=== PATIENT | male | born 1995 | race Caucasian/White ===

== ENCOUNTER 2018-09-22 21:37 | Emergency (ER) | payer MEDICAID, OTHER ==
[~2018-09-22] VITALS: Ht 190.5 cm; Wt 90.0 kg
[~2018-09-22 21:37] MED LIST: HYDR-4353 PO
[2018-09-22 21:45] VITALS: BP 129/84
[2018-09-22] MEDS ORDERED: NAPR-56 PO (22:10)
[2018-09-22] MEDS ORDERED: SULF1TAB49 PO (22:10)
[2018-09-24] MEDS ORDERED: ABX (11:30)
[2018-09-26] MEDS ORDERED: LINE600T36 PO (10:40)
[2018-09-26] MEDS ORDERED: LACT1CAP26 PO (10:40)
== END 2018-09-22 22:40 | disposition home or self-care (01) ==
LOC: ER 21:37
DX: L03.113 Cellulitis of right upper limb (principal); F12.90 Cannabis use, unspecified, uncomplicated; F11.90 Opioid use, unspecified, uncomplicated; F10.99 Alcohol use, unspecified with unspecified alcohol-induced disorder; Z88.0 Allergy status to penicillin; Z79.899 Other long term (current) drug therapy; Y90.9 Presence of alcohol in blood, level not specified
CPT/HCPCS: 99283